=== PATIENT | male | born 1995 | race Caucasian/White ===

== ENCOUNTER 2016-05-10 00:35 | Emergency (ER) ==
--- NOTE | 2016-05-10 01:12 | PROVIDER DOCUMENTATION ---
HPI-Psychological Disorder - General Source: patient <Anitra Alejandro - Last Filed: 05/10/16 01:40> <Ok Avina - Last Filed: 05/15/16 14:01> - General Chief Complaint: Psych Stated Complaint: PSYCH Time Seen by Provider: 05/10/16 01:06 Allergies/Adverse Reactions: Patient Allergies Allergy/AdvReac Type Severity Reaction Status Date / Time No Known Allergies Allergy Verified 05/10/16 12:31 Home Medications: Home Medication List Medication Instructions Recorded Confirmed Last Taken Type Venlafaxine [Effexor] 37.5 mg PO DAILY 01/25/16 05/10/16 05/10/16 History Lurasidone HCl [Latuda] 20 mg PO DAILY 04/04/16 05/10/16 05/10/16 History Clonazepam [Klonopin] 1 mg PO TID 05/10/16 05/10/16 05/09/16 History Omeprazole [Prilosec] 20 mg PO DAILY@0700 05/10/16 05/10/16 05/10/16 History - History of Present Illness-Psych Nature of Presenting Problem: 20 y/o WM c/o paranoia, schizophrenia and not being able to sleep. Patient's mother has many different drugs in the house hold and he states he is paranoid about the director of primary coming and breaking in to arrest everyone. Denies suicidal ideation, homicidal ideation, visual hallucinations or auditory hallucinations. Admits to taking methamphetamines (Anitra Alejandro) Review of Systems - Adult - REVIEW OF SYSTEMS - ADULT Constitutional: reports: no symptoms reported. denies: chills, fever, fatique Eyes: reports: no symptoms reported. denies: blurred vision, double vision, eye pain Ears, Nose, Mouth & Throat: reports: no symptoms reported. denies: ear pain, nose pain, throat pain Cardiovascular: reports: no symptoms reported. denies: chest pain, palpitations Respiratory: reports: no symptoms reported. denies: cough, shortness of breath Gastrointestinal: reports: no symptoms reported. denies: abdominal pain, diarrhea, nausea, vomiting Genitourinary: reports: no symptoms reported. denies: incontinence Musculoskeletal: reports: no symptoms reported. denies: bone pain, back pain, muscle aches Integumentary: reports: no symptoms reported. denies: rash Neurological: reports: no symptoms reported. denies: dizziness/vertigo, headache/migraines Psychiatric: reports: no symptoms reported Endocrine: reports: no symptoms reported Hematologic/Lymphatic: reports: no symptoms reported Allergic/Immunologic: reports: no symptoms reported All Other Systems: Reviewed and Negative <Anitra Alejandro - Last Filed: 05/10/16 01:40> Past History - Adult - PAST MEDICAL HISTORY-ADULT Review of Records: reports: Old Records Reviewed, Nursing Assessment Review, Medications Reviewed, Social history reviewed & non-contributory. Major Childhood Illnesses: reports: denies history, other Cardiovascular: reports: denies history Respiratory: reports: asthma (child ) Gastrointestinal: reports: GERD Genitourinary: reports: denies history Musculoskeletal: reports: denies history Neurological: reports: denies history Psychiatric: reports: anxiety, depression, psychiatric problems Endocrine/Immune: reports: denies history Other Conditions: reports: denies history - PRIOR SURGERIES/PROCEDURES Surgical/Procedure History: reports: other (eye sx, endoscopy) - PRIOR HOSPITALIZATIONS Prior Hospitalizations: reports: psychiatric or rehab - IMMUNIZATION STATUS Childhood Immunizations: See Nurse Assessment Flu Vaccine: See Nurse Assessment - FAMILY HISTORY Family History: reviewed, not pertinent - SOCIAL HISTORY Smoking: less than 1 pack/day Provider spent 3-5 mins advising pt. on dangers of tobacco.: Discussed manners to quit use, and f/u contacts for add'l counseling. Substance Use: amphetamines Alcohol Use Frequency: never <Anitra Alejandro - Last Filed: 05/10/16 01:40> Physical Exam-Psych Focus - Physical Exam-Psych Initial Vital Signs Reviewed: Yes Appearance: appropriate appearance, appropriate insight, neat, no apparent distress, no memory impairment, denies illness Neurological: alert, normal mood/affect, calm, project builder II-XII nml as tested, oriented x 3 Behavior/Eye Contact/Speech: cooperative, good eye contact, normal speech Thoughts/Hallucinations: normal thought pattern, no apparent hallucination HENMT: normocephalic/atraumatic, moist mucous membranes Neck: non-tender, full range of motion, supple, normal inspection Respiratory: chest non-tender, lungs clear, normal breath sounds, no pleuratic chest pain, no respiratory distress, no accessory muscle use. negative: respiratory distress, decreased breath sounds, accessory muscle use, crackles, rales, rhonchi, wheezing Cardiovascular: normal peripheral pulses, regular rate, rhythm Extremity: normal range of motion, non-tender, normal gait Integumentary: normal color, normal turgor, warm/dry <Anitra Alejandro - Last Filed: 05/10/16 01:40> Progress - CHANGE OF SHIFT REPORT (ED Provider) Report Given and Care Transferred to:: Dr. Baptiste Time of Transfer: 01:40 Items Pending: Labs, Physician Consult/Arrival Tentative Impression of Patient: stable <Anitra Alejandro - Last Filed: 05/10/16 01:40> - PSYCHIATRIC Medically clear for psych eval and/or transfer to [facility] Yes (patient is medically cleared for [facility]) <Ok Avina - Last Filed: 05/15/16 14:01> - PLAN OF CARE/RESULTS Progress/Plan/Lab Results: Vital Signs Temp Pulse Resp BP Pulse Ox 05/10/16 04:18 98.1 F 103 H 16 124/79 100 05/10/16 00:38 97.8 F 87 20 139/92 100 No Known Allergies Allergy (Verified 05/10/16 01:26) Venlafaxine [Effexor] 37.5 mg PO DAILY 01/25/16 Lurasidone HCl [Latuda] 20 mg PO DAILY 04/04/16 Clonazepam [Klonopin] 1 mg PO TID 05/10/16 Omeprazole [Prilosec] 20 mg PO DAILY@0700 05/10/16 NICOTINE DEPENDENCE, CIGARETTES, UNCOMPLICATED (05/10/16) UNSP PSYCHOSIS NOT DUE TO A SUBSTANCE OR KNOWN PHYSIOL COND (05/10/16) MAJOR DEPRESSIVE DISORDER, SINGLE EPISODE, UNSPECIFIED (05/10/16) ANXIETY DISORDER, UNSPECIFIED (05/10/16) TOBACCO ABUSE COUNSELING (05/10/16) OTHER SENIOR CARE (CURRENT) DRUG THERAPY (05/10/16) Orders Category Date Time Status ALCOHOL BLOOD Stat Lab 05/10/16 00:45 Completed CBC WITH ELECTRONIC DIFF [HEME] Stat Lab 05/10/16 00:45 Completed COMPREHENSIVE METABOLIC PANEL [CHEM] Stat Lab 05/10/16 00:45 Completed FREE T4 Stat Lab 05/10/16 00:45 Completed TSH Stat Lab 05/10/16 00:45 Completed URINALYSIS W/POSS RFLX CULT [URINALYSIS] Stat Lab 05/10/16 00:45 Completed URINE DRUG SCREEN Stat Lab 05/10/16 00:45 Completed VITAMIN B12 Stat Lab 05/10/16 00:45 Completed EKG [EKG] Stat Ther 05/10/16 00:47 Draft (Ok Avina) - PSYCHIATRIC Psych patient progress: patient signed no harm contract, family will watch him, pt will f/u with outpatient mental health (Ok Avina) Departure <Anitra Alejandro - Last Filed: 05/10/16 01:40> - Departure Time of Disposition Order: 04:20 Certified Medical Emergency: Emergent <Ok Avina - Last Filed: 05/15/16 14:01> - Departure DIAGNOSIS: Generalized anxiety disorder Depression Qualifiers: Depression Type: major depressive disorder Major depression recurrence: recurrent Active/Remission status: currently active Major depression episode severity: mild Qualified Code(s): F33.0 - Major depressive disorder, recurrent, mild Schizophrenia Qualifiers: Schizophrenia type: other Qualified Code(s): F20.89 - Other schizophrenia; F20.8 - Other schizophrenia Disposition: HOME 01 Condition: Stable Additional Instructions: ED Follow Up Instructions: You have been treated by a care provider in the Emergency Department. These instructions are being provided to you so you can have an understanding of how to care for yourself upon discharge. Upon discharge from the Emergency Department, you are responsible for making arrangements for follow-up care by a physician of your choice. Take all prescribed medications as directed. Return to the Emergency Department immediately for any new or worsening symptoms. You may call the Physician Referral phone number at [phone] to obtain a list of Physicians who are taking new patients. Referrals: None,PCP [Primary Care Provider] - Instructions: Depression, Adult, Bipolar Disorder, Stimulant Use Disorder- Methamphetamines Attestation - Physician/ JERI Attestation Patient care was provided by Advanced Practice Provider:: Yes Advanced Practice Provider:: Anitra Alejandro Advanced Practice Provider documentation review:: The Mid-level provider documentation, treatment plan and medical decision making was reviewed by the physician who agrees with all treatment and medical decision making by the MLP. <Anitra Alejandro - Last Filed: 05/10/16 01:40> - Scribe Verification/Attestation Scribe:: Ok Avina Acting as Scribe for:: Bud Baptiste Scribe documention review:: This chart was documented by a scribe and accurately reflects the service the provider performed and the decisions made by the provider. <Ok Avina - Last Filed: 05/15/16 14:01> Physician Attestation - Physician Attestation I, the provider, attest to the following statement:: Bud Baptiste Physician documentation Attestation:: This documentation recorded by the scribe accurately reflects the service I personally performed and the decisions made by me. <Ok Avina - Last Filed: 05/15/16 14:01>
[2016-05-10 01:24] LABS: MANUAL DIFF NEEDED? NO
[2016-05-10 01:25] LABS: URINE CULTURE NEEDED? NO; URINE MICRO REVIEW NEEDED? NO; URINE SOURCE CLEAN CATCH
[2016-05-10 01:37] LABS: BASO% 0.4 % (0.0-0.8); EOS# 0.26 X1000 (0.0-0.7); EOS% 3.1 % (0.0-10.0); HEMATOCRIT 44.6 % (42.0-52.0); IMM GRAN# 0.02 X1000 (0.0-0.04); IMM GRAN% 0.2 % (0.0-0.5); LYMPH# 2.96 X1000 (1.2-3.4); LYMPH% 35.2 % (20.5-51.1); MCH 29.6 PG (27-31); MCHC 35.9 g/dL (33-37); MCV 82.6 FL (81-99); MONO# 0.93 X1000 (0.11-0.59); MONO% 11.1 % (1.7-9.3); MPV 9.2 FL (7.4-10.4); PLT 339 X1000 (130-400)
[2016-05-10 01:51] LABS: BILIRUBIN URINE NEGATIVE (NEGATIVE); BLOOD URINE NEGATIVE (NEGATIVE); COLOR YELLOW; GLUCOSE URINE NEGATIVE (NEGATIVE); LEUKOCYTES URINE NEGATIVE (NEGATIVE); NITRITE URINE NEGATIVE (NEGATIVE); PROTEIN URINE NEGATIVE (NEGATIVE); SP GRAVITY URINE 1.019; TURBIDITY URINE CLEAR (CLEAR); UR EPITHELIAL CELLS <10 /HPF (<10); URINE BACTERIA NEGATIVE /HPF; URINE RBC <10 /HPF (<10); URINE WBC <10 /HPF (<10); UROBILINOGEN URINE NORMAL (NORMAL)
--- NOTE | 2016-05-10 02:00 | ED EKG INTERP ---
EKG Interpretation - EKG Time of EKG reading by physician:: 01:59 EKG Read and Signed by:: Bud Baptiste EKG Interpretation (*Must complete 3 of following elements*): Normal Rate: 87 Rhythm: NSR [place]: normal QRS: normal [place] Interval: normal ST Wave: normal Attestation - Scribe Verification/Attestation Scribe:: Isha Brooks Acting as Scribe for:: Bud Baptiste Scribe documention review:: This chart was documented by a scribe and accurately reflects the service the provider performed and the decisions made by the provider. Physician Attestation - Physician Attestation I, the provider, attest to the following statement:: Bud Baptiste Physician documentation Attestation:: This documentation recorded by the scribe accurately reflects the service I personally performed and the decisions made by me.
[2016-05-10 02:04] LABS: AGAP 15; ALBUMIN 4.5 g/dL (3.5-5.0); ALKALINE PHOSPHATASE 60 U/L (32-122); BUN 16 mg/dL (8-22); CALCIUM 9.5 mg/dL (8.8-10.2); CHLORIDE 99 mmol/L (98-107); COSMO 280; GOT 27 U/L (10-34); GPT 38 U/L (10-44); POTASSIUM 3.4 mmol/L (3.5-5.1); SODIUM 140 mmol/L (136-145); TCO2 26 mmol/L (25-35); TOTAL BILIRUBIN 0.81 mg/dL (0.20-1.00); TOTAL PROTEIN 7.3 g/dL (6.3-8.3)
[2016-05-10 02:12] LABS: UR AMPHETAMINES QUAL PRESUMPTIVE POSITIVE (NONE DETECT); UR BARBITUATES QUAL NONE DETECTED (NONE DETECT); UR BENZODIAZEPIN QUAL NONE DETECTED (NONE DETECT); UR CANNABINOIDS QUAL NONE DETECTED (NONE DETECT); UR COCAINE QUAL NONE DETECTED (NONE DETECT); UR METHADONE QUAL NONE DETECTED (NONE DETECT); UR OPIATES QUAL NONE DETECTED (NONE DETECT); UR OXYCODONE QUAL NONE DETECTED (NONE DETECT); UR PCP QUAL NONE DETECTED (NONE DETECT)
[2016-05-10 02:17] LABS: FREE T4 1.49 ng/dL (0.93-1.70)
[2016-05-10 04:19] VITALS: BP 124/79
--- NOTE | 2016-05-10 06:18 | EKG Report ---
Test Performed on : 05/10/2016 01:08:48 AM Test Reason : Psych Blood Pressure : / mmHG Vent. Rate : 087 BPM Atrial Rate : 087 BPM P-R Int : 126 ms QRS Dur : 098 ms QT Int : 366 ms P-R-T Axes : 078 050 081 degrees QTc Int : 440 ms Normal sinus rhythm. Normal ECG When compared with ECG of 11-APR-2016 14:37, No significant change was found Unconfirmed Result
== END 2016-05-10 04:20 | disposition home or self-care (01) ==
LOC: ED 00:35
DX: F33.0 Major depressive disorder, recurrent, mild (principal); F20.89 Other schizophrenia; F41.1 Generalized anxiety disorder; F29 Unspecified psychosis not due to a substance or known physiological condition; F17.210 Nicotine dependence, cigarettes, uncomplicated; Z71.6 Tobacco abuse counseling; Z79.899 Other long term (current) drug therapy; F13.230 Sedative, hypnotic or anxiolytic dependence with withdrawal, uncomplicated; R11.2 Nausea with vomiting, unspecified; G25.89 Other specified extrapyramidal and movement disorders; K21.9 Gastro-esophageal reflux disease without esophagitis; F32.9 Major depressive disorder, single episode, unspecified
CPT/HCPCS: 36415; 80053; 81001; 82607; 84439; 84443; 85025; 93005; 99284; G0480; 80320; 80324; 80345; 80346; 80349; 80353; 80358; 80361; 80365; 83992

== ENCOUNTER 2016-05-10 12:01 | Emergency (ER) ==
[2016-05-10] MEDS ORDERED: ATIVAN IV ONE (12:52)
[2016-05-10] MEDS ORDERED: NS 1,000 ML IV ONE (12:52)
[2016-05-10 13:09] LABS: MANUAL DIFF NEEDED? NO
[2016-05-10 13:11] LABS: URINE CULTURE NEEDED? NO; URINE MICRO REVIEW NEEDED? NO; URINE SOURCE CLEAN CATCH
[2016-05-10 13:14] LABS: BASO% 0.2 % (0.0-0.8); EOS# 0.05 X1000 (0.0-0.7); EOS% 0.6 % (0.0-10.0); HEMATOCRIT 47.6 % (42.0-52.0); HEMOGLOBIN 17.3 g/dL (14.0-18.0); IMM GRAN# 0.02 X1000 (0.0-0.04); IMM GRAN% 0.2 % (0.0-0.5); LYMPH# 1.69 X1000 (1.2-3.4); LYMPH% 19.3 % (20.5-51.1); MCH 29.3 PG (27-31); MCHC 36.3 g/dL (33-37); MCV 80.7 FL (81-99); MONO# 0.62 X1000 (0.11-0.59); MONO% 7.1 % (1.7-9.3); MPV 9.4 FL (7.4-10.4); NEUT% 72.6 % (42.2-75.2); PLT 344 X1000 (130-400)
[2016-05-10 13:16] LABS: BILIRUBIN URINE NEGATIVE (NEGATIVE); BLOOD URINE NEGATIVE (NEGATIVE); COLOR YELLOW; GLUCOSE URINE NEGATIVE (NEGATIVE); LEUKOCYTES URINE NEGATIVE (NEGATIVE); NITRITE URINE NEGATIVE (NEGATIVE); PH URINE 7.5; PROTEIN URINE NEGATIVE (NEGATIVE); SP GRAVITY URINE 1.005; TURBIDITY URINE CLEAR (CLEAR); UR EPITHELIAL CELLS <10 /HPF (<10); URINE BACTERIA NEGATIVE /HPF; URINE RBC <10 /HPF (<10); URINE WBC <10 /HPF (<10); UROBILINOGEN URINE NORMAL (NORMAL)
[2016-05-10 13:31] LABS: UR AMPHETAMINES QUAL NONE DETECTED (NONE DETECT); UR BARBITUATES QUAL NONE DETECTED (NONE DETECT); UR BENZODIAZEPIN QUAL NONE DETECTED (NONE DETECT); UR CANNABINOIDS QUAL NONE DETECTED (NONE DETECT); UR COCAINE QUAL NONE DETECTED (NONE DETECT); UR METHADONE QUAL NONE DETECTED (NONE DETECT); UR OPIATES QUAL NONE DETECTED (NONE DETECT); UR OXYCODONE QUAL NONE DETECTED (NONE DETECT); UR PCP QUAL NONE DETECTED (NONE DETECT)
[2016-05-10 13:32] LABS: AGAP 17; ALBUMIN 4.9 g/dL (3.5-5.0); ALKALINE PHOSPHATASE 66 U/L (32-122); BUN 16 mg/dL (8-22); CALCIUM 10.4 mg/dL (8.8-10.2); CHLORIDE 97 mmol/L (98-107); COSMO 275; GOT 25 U/L (10-34); GPT 38 U/L (10-44); POTASSIUM 4.3 mmol/L (3.5-5.1); SODIUM 136 mmol/L (136-145); TCO2 22 mmol/L (25-35); TOTAL BILIRUBIN 0.99 mg/dL (0.20-1.00); TOTAL PROTEIN 7.8 g/dL (6.3-8.3)
--- NOTE | 2016-05-10 13:36 | PROVIDER DOCUMENTATION ---
[id number] Abuse/Overdose - General Chief Complaint: Withdrawals Stated Complaint: withdrawals Time Seen by Provider: 05/10/16 12:28 Source: patient Allergies/Adverse Reactions: Allergies Allergy/AdvReac Type Severity Reaction Status Date / Time No Known Allergies Allergy Verified 05/10/16 12:31 Home Medications: Home Medication List Medication Instructions Recorded Confirmed Last Taken Type Venlafaxine [Effexor] 37.5 mg PO DAILY 01/25/16 05/10/16 05/10/16 History Lurasidone HCl [Latuda] 20 mg PO DAILY 04/04/16 05/10/16 05/10/16 History Clonazepam [Klonopin] 1 mg PO TID 05/10/16 05/10/16 05/09/16 History Omeprazole [Prilosec] 20 mg PO DAILY@0700 05/10/16 05/10/16 05/10/16 History - History of Present Illness-Drug/Alcohol Nature of Presenting Problem: 20 year old WM presents with c/o nausea, vomiting and shaking since last night. pt reports he ran out of his klonopin 3 days ago and is experiencing with drawls. pt reports several weeks ago he took 15 klonopin so he would sleep for a long time so he ran out before he was able to get a refill. pt reports he has an appointment with his psychiatrist at 1400 today for refills. This episode of drinking or use began:: 3 days ago Severity: reports: mild Psychiatric Complaints: reports: denies symptoms. denies: angry, agitated, altered mental status, anxiety, confused, depressed, frustrated, hallucinating, hostile, homicidal thoughts, impaired concentration, ingestion, injury, insomnia , irritability, paranoid, , rapid pulse, restlessness, suicidal ideation , tremor, other Associated Symptoms: reports: anxiety, nausea, vomiting. denies: denies symptoms, arm pain, back/neck pain, chest pain, constipation, cough, diaphoresis , diarrhea, dizziness, EENT symptoms, fatigue, fever/chills, genitourinary problems, headaches, heartburn, joint pain, loss of appetite, malaise, muscle aches, sinus congestion/drainage, rash, seizure, shortness of breath, sensory/ motor loss, pain with inspiration, swelling/mass in abdomen, syncope, weakness, trouble walking, other Any injuries associated with this episode of intoxication?: No Similar Symptoms Previously?: No Recently seen or treated by another doctor?: No Review of Systems - Adult - REVIEW OF SYSTEMS - ADULT Constitutional: reports: no symptoms reported. denies: chills, fever, fatique Eyes: reports: no symptoms reported. denies: discharge, blurred vision, double vision, redness Ears, Nose, Mouth & Throat: reports: no symptoms reported. denies: ear discharge, ear pain, nose pain, loose teeth, throat pain, throat swelling Cardiovascular: reports: no symptoms reported. denies: chest pain, heart murmur , irregular heart rate, palpitations Respiratory: reports: no symptoms reported. denies: chronic cough, cough, shortness of breath, wheezing Gastrointestinal: reports: see HPI, nausea, vomiting. denies: abdominal pain, hematemesis, constipation, diarrhea, difficulty swallowing, frequent heartburn, poor appetite, rectal bleeding Genitourinary: reports: no symptoms reported. denies: dysuria, hematuria, urgency Musculoskeletal: reports: no symptoms reported. denies: bone pain, joint pain, joint swelling, neck pain Integumentary: reports: no symptoms reported. denies: hives, itching, rash, skin sores/ulcer Neurological: reports: no symptoms reported. denies: ataxia, dizziness/vertigo , headache/migraines, loss of balance, numbness, paresthesia, seizure, slurred speech, syncope, tremors Psychiatric: reports: see HPI, anxiety, anti-depressant use, alcohol/drug dependence, depression, emotional problems, panic attacks. denies: suicidal thoughts Endocrine: reports: no symptoms reported Hematologic/Lymphatic: reports: no symptoms reported Allergic/Immunologic: reports: no symptoms reported All Other Systems: Reviewed and Negative Past History - Adult - PAST MEDICAL HISTORY-ADULT Review of Records: reports: Old Records Reviewed, Nursing Assessment Review, Medications Reviewed, Social history reviewed & non-contributory. Major Childhood Illnesses: reports: denies history, other Cardiovascular: reports: denies history Respiratory: reports: asthma (child ) Gastrointestinal: reports: GERD Obstetrical/Gynecological: reports: denies history Genitourinary: reports: denies history Musculoskeletal: reports: denies history Neurological: reports: denies history Psychiatric: reports: anxiety, depression, psychiatric problems Endocrine/Immune: reports: denies history Other Conditions: reports: denies history - PRIOR SURGERIES/PROCEDURES Surgical/Procedure History: reports: other (eye sx, endoscopy) - PRIOR HOSPITALIZATIONS Prior Hospitalizations: reports: psychiatric or rehab - IMMUNIZATION STATUS Childhood Immunizations: See Nurse Assessment Flu Vaccine: See Nurse Assessment - FAMILY HISTORY Family History: reviewed, not pertinent - SOCIAL HISTORY Smoking: cigarettes, greater than 1 pack/day Provider spent 3-5 mins advising pt. on dangers of tobacco.: Discussed manners to quit use, and f/u contacts for add'l counseling. Substance Use: none/never Alcohol Use Frequency: never Physical Exam-General - PHYSICAL EXAM-ADULT Initial Vital Signs Reviewed: Yes - CONSTITUTIONAL General Appearance: appears well, alert, no apparent distress. negative: mild distress, moderate distress, severe distress, lethargic, slow to respond, obtunded, combative - EYES Eyes: pink conjunctivae. negative: conjuctival exudate, pale conjunctivae, photophobia, sclera injected, scleral icterus, subconjunctival hemorrhage - HEAD, EARS, NOSE, MOUTH & THROAT HENMT: normocephalic/atraumatic, moist mucous membranes, normal ENT inspection - NECK Neck: non-tender, full range of motion, supple, normal inspection. negative: C- spine tenderness, limited range of motion, tender lateral, tender midline - RESPIRATORY Respiratory: chest non-tender, lungs clear, normal breath sounds, no pleuratic chest pain, no respiratory distress, no accessory muscle use. negative: respiratory distress, decreased breath sounds, accessory muscle use, crackles, rales, rhonchi - CARDIOVASCULAR Cardiovascular: normal peripheral pulses, regular rate, rhythm, no edema, no gallop, no JVD, no murmur, tachycardia. negative: bradycardia, diastolic murmur , systolic murmur - CHEST (BREASTS) Chest/Breast: deferred - GASTROINTESTINAL (ABDOMEN) Abdominal Exam: normal bowel sounds, non tender, soft - GENITOURINARY Male Genitalia: deferred Rectal Exam: deferred - LYMPHATIC Lymphatic: no adenopathy - MUSCULOSKELETAL Back Exam: normal inspection, no CVA tenderness, no vertebral tenderness. negative: CVA tenderness, decreased range of motion, swelling, vertebral tenderness Extremity: normal range of motion, non-tender, normal gait, normal inspection, no pedal edema, no calf tenderness, normal capillary refill. negative: deformity, erythema, inflammation, slow capillary refill, swelling, tenderness Peripheral Pulses: radial (R): 3+, radial (L): 3+, dorsalis-pedis (R): 3+, dorsalis-pedis (L): 3+ - SKIN Integumentary: normal color, normal turgor, warm/dry - NEUROLOGIC Neurologic: grossly normal, no motor/sensory deficits. negative: facial droop, focal weakness, motor weakness, sensory deficit - PSYCHIATRIC Psych/Mental Status: normal mood/affect, normal thought content, normal thought process, oriented x 3 Progress - PLAN OF CARE/RESULTS Progress/Plan/Lab Results: Laboratory Tests 05/10/16 05/10/16 05/10/16 12:20 12:20 12:20 WBC 8.77 RBC 5.90 Hgb 17.3 Hct 47.6 MCV 80.7 L MCH 29.3 MCHC 36.3 RDW Std Deviation 13.3 Plt Count 344 MPV 9.4 Immature Gran % (Auto) 0.2 Neut % (Auto) 72.6 Lymph % (Auto) 19.3 L Becker % (Auto) 7.1 Eos % (Auto) 0.6 Baso % (Auto) 0.2 Immature Gran # (Auto) 0.02 Neut # (Auto) 6.37 Lymph # (Auto) 1.69 Becker # (Auto) 0.62 H Eos # (Auto) 0.05 Baso # (Auto) 0.02 Sodium 136 Potassium 4.3 D Chloride 97 L Carbon Dioxide 22 L Anion Gap 17 BUN 16 Creatinine 1.0 Estimated GFR/1.73 m2 > 60 BUN/Creatinine Ratio 16 Glucose 125 H Calculated Osmolality 275 Calcium 10.4 H Total Bilirubin 0.99 AST 25 ALT 38 Alkaline Phosphatase 66 Total Protein 7.8 Albumin 4.9 Globulin 2.9 Albumin/Globulin Ratio 1.7 Urine Source Urine Color Urine Turbidity Urine pH Ur Specific [place] Urine Protein Ur Glucose (Stick) Ur Ketones (Stick) Urine Blood Urine Nitrite Urine Bilirubin Urobilinogen Dipstick Urine Leukocytes Urine WBC (Auto) Urine RBC (Auto) U Epithel Cells (Auto) Urine Bacteria (Auto) Urine Opiates Screen Ur Oxycodone Screen Ur Methadone, Qual Ur Barbiturates Screen Ur Phencyclidine Scrn Ur Amphetamines Screen U Benzodiazepines Scrn Urine Cocaine Screen U Cannabinoids Screen Plasma/Serum Ethyl Alc 05/10/16 05/10/16 13:00 13:00 WBC RBC Hgb Hct MCV MCH MCHC RDW Std Deviation Plt Count MPV Immature Gran % (Auto) Neut % (Auto) Lymph % (Auto) Becker % (Auto) Eos % (Auto) Baso % (Auto) Immature Gran # (Auto) Neut # (Auto) Lymph # (Auto) Becker # (Auto) Eos # (Auto) Baso # (Auto) Sodium Potassium Chloride Carbon Dioxide Anion Gap BUN Creatinine Estimated GFR/1.73 m2 BUN/Creatinine Ratio Glucose Calculated Osmolality Calcium Total Bilirubin AST ALT Alkaline Phosphatase Total Protein Albumin Globulin Albumin/Globulin Ratio Urine Source CLEAN CATCH Urine Color YELLOW Urine Turbidity CLEAR Urine pH 7.5 Ur Specific [place] 1.005 Urine Protein NEGATIVE Ur Glucose (Stick) NEGATIVE Ur Ketones (Stick) NEGATIVE Urine Blood NEGATIVE Urine Nitrite NEGATIVE Urine Bilirubin NEGATIVE Urobilinogen Dipstick NORMAL Urine Leukocytes NEGATIVE Urine WBC (Auto) <10 Urine RBC (Auto) <10 U Epithel Cells (Auto) <10 Urine Bacteria (Auto) NEGATIVE Urine Opiates Screen NONE DETECTED Ur Oxycodone Screen NONE DETECTED Ur Methadone, Qual NONE DETECTED Ur Barbiturates Screen NONE DETECTED Ur Phencyclidine Scrn NONE DETECTED Ur Amphetamines Screen NONE DETECTED U Benzodiazepines Scrn NONE DETECTED Urine Cocaine Screen NONE DETECTED U Cannabinoids Screen NONE DETECTED Plasma/Serum Ethyl Alc Orders Category Date Time Status ALCOHOL BLOOD Stat Lab 05/10/16 12:20 Completed CBC WITH ELECTRONIC DIFF [HEME] Stat Lab 05/10/16 12:20 Completed COMPREHENSIVE METABOLIC PANEL [CHEM] Stat Lab 05/10/16 12:20 Completed URINALYSIS W/POSS RFLX CULT [URINALYSIS] Stat Lab 05/10/16 13:00 Completed URINE DRUG SCREEN Stat Lab 05/10/16 13:00 Completed 0.9% Sodium Chloride Inj [Ns] 1,000 ml Med 05/10/16 12:52 Discontinued IV 999 mls/hr Lorazepam [Ativan] Med 05/10/16 12:52 Discontinued 1 mg IV NOW ONE Vital Signs - 24 hr 05/10/16 05/10/16 12:25 13:54 Temperature 98 F 98 F Pulse Rate 122 H 102 H Respiratory 20 16 Rate Blood Pressure 117/72 132/78 O2 Sat by Pulse 100 100 Oximetry Departure - Departure Time of Disposition Order: 13:30 DIAGNOSIS: Generalized anxiety disorder Benzodiazepine withdrawal Qualifiers: Complication of substance-induced condition: uncomplicated Qualified Code(s): F13.230 - Sedative, hypnotic or anxiolytic dependence with withdrawal, uncomplicated Disposition: HOME 01 Certified Medical Emergency: Emergent Condition: Stable Additional Instructions: Please attend your appointment today at 2pm with mental health to have them refill your Klonipin. ED Follow Up Instructions: You have been treated by a care provider in the Emergency Department. These instructions are being provided to you so you can have an understanding of how to care for yourself upon discharge. Upon discharge from the Emergency Department, you are responsible for making arrangements for follow-up care by a physician of your choice. Take all prescribed medications as directed. Return to the Emergency Department immediately for any new or worsening symptoms. You may call the Physician Referral phone number at [phone] to obtain a list of Physicians who are taking new patients. Referrals: None,PCP [Primary Care Provider] - Forms: Return to School/Parent Work Instructions: Generalized Anxiety Disorder, Benzodiazepine Withdrawal Attestation - Physician/ JERI Attestation Patient care was provided by Advanced Practice Provider:: Yes Advanced Practice Provider:: Lito Calhoun Advanced Practice Provider documentation review:: The Mid-level provider documentation, treatment plan and medical decision making was reviewed by the physician who agrees with all treatment and medical decision making by the MLP.
[2016-05-10 13:54] VITALS: BP 132/78
== END 2016-05-10 14:01 | disposition home or self-care (01) ==
LOC: EDBD → ED 12:01
DX: F41.1 Generalized anxiety disorder (principal); F13.230 Sedative, hypnotic or anxiolytic dependence with withdrawal, uncomplicated; R11.2 Nausea with vomiting, unspecified; G25.89 Other specified extrapyramidal and movement disorders; K21.9 Gastro-esophageal reflux disease without esophagitis; F32.9 Major depressive disorder, single episode, unspecified; F17.210 Nicotine dependence, cigarettes, uncomplicated; Z79.899 Other long term (current) drug therapy; Z71.6 Tobacco abuse counseling
CPT/HCPCS: 80053; 81001; 85025; G0480; J2060; J7030; 80320; 80324; 80345; 80346; 80349; 80353; 80358; 80361; 80365; 83992

== ENCOUNTER 2016-05-23 11:56 | Emergency (ER) ==
[2016-05-23 13:37] LABS: MANUAL DIFF NEEDED? NO
[2016-05-23 13:41] LABS: BASO% 0.4 % (0.0-0.8); EOS# 0.13 X1000 (0.0-0.7); EOS% 1.7 % (0.0-10.0); HEMATOCRIT 50.8 % (42.0-52.0); HEMOGLOBIN 17.7 g/dL (14.0-18.0); LYMPH# 1.62 X1000 (1.2-3.4); LYMPH% 21.4 % (20.5-51.1); MCH 29.5 PG (27-31); MCHC 34.8 g/dL (33-37); MCV 84.8 FL (81-99); MONO# 0.59 X1000 (0.11-0.59); MONO% 7.8 % (1.7-9.3); MPV 8.8 FL (7.4-10.4); NEUT% 68.7 % (42.2-75.2); PLT 229 X1000 (130-400); RBC 5.99 XMIL (4.7-6.1)
[2016-05-23 14:00] LABS: AGAP 12; ALKALINE PHOSPHATASE 64 U/L (32-122); BUN 11 mg/dL (8-22); CALCIUM 10.3 mg/dL (8.8-10.2); CHLORIDE 102 mmol/L (98-107); COSMO 282; GOT 28 U/L (10-34); GPT 41 U/L (10-44); POTASSIUM 3.9 mmol/L (3.5-5.1); SODIUM 142 mmol/L (136-145); TCO2 28 mmol/L (25-35); TOTAL BILIRUBIN 0.61 mg/dL (0.20-1.00); TOTAL PROTEIN 8.1 g/dL (6.3-8.3)
[2016-05-23 14:17] LABS: URINE CULTURE NEEDED? NO; URINE MICRO REVIEW NEEDED? NO; URINE SOURCE CLEAN CATCH
[2016-05-23 14:17] LABS: FREE T4 1.17 ng/dL (0.93-1.70)
--- NOTE | 2016-05-23 14:34 | PROVIDER DOCUMENTATION ---
HPI-Psychological Disorder - General Chief Complaint: Psych Stated Complaint: ANIXITY Time Seen by Provider: 05/23/16 14:19 Source: patient Allergies/Adverse Reactions: Patient Allergies Allergy/AdvReac Type Severity Reaction Status Date / Time No Known Allergies Allergy Verified 05/10/16 12:31 Home Medications: Home Medication List Medication Instructions Recorded Confirmed Last Taken Type Venlafaxine [Effexor] 37.5 mg PO DAILY 01/25/16 05/10/16 05/10/16 History Lurasidone HCl [Latuda] 20 mg PO DAILY 04/04/16 05/10/16 05/10/16 History Clonazepam [Klonopin] 1 mg PO TID 05/10/16 05/10/16 05/09/16 History Omeprazole [Prilosec] 20 mg PO DAILY@0700 05/10/16 05/10/16 05/10/16 History - History of Present Illness-Psych Nature of Presenting Problem: patient is a 20 y/o M that presents to the ER with psychiatric issues. patient was placed on Klonopin and took last dose yesterday. patient today started to get anxious and have SI thoughts( wants to shoot himself with gun). Long standing history with psychiatric issues ( bipolar and schizophrenia). Onset/Duration: reports: gradual, this morning Timing: reports: still present, constant Severity: reports: moderate Situational problems related to:: reports: N/A Psychiatric Complaints: reports: anxiety, depressed, suicidal ideation. denies : hallucinating, homicidal thoughts, impaired concentration, paranoid Previous psych related hospitalizations?: Yes Patient arrived by:: private car Similar Symptoms Previously?: Yes Recently seen or treated by another doctor?: No - Suicidal Ideation Suicide Risk Assessment: male sex, depressed, organized plan, chronic illness, schizophrenia, bi-polar Clinician's estimation of suicide risk?: high risk Suicidal Attempt Method: reports: Shooting Review of Systems - Adult - REVIEW OF SYSTEMS - ADULT Constitutional: denies: chills, fever, night sweats Eyes: denies: decreased vision, blurred vision, eye pain Ears, Nose, Mouth & Throat: denies: ear pain, sinus problem, throat pain, throat swelling Cardiovascular: denies: chest pain, palpitations, syncope Respiratory: denies: cough, shortness of breath, wheezing Gastrointestinal: reports: no symptoms reported Genitourinary: reports: no symptoms reported Musculoskeletal: reports: no symptoms reported Integumentary: reports: no symptoms reported Neurological: denies: dizziness/vertigo, headache/migraines, seizure, syncope Psychiatric: reports: anxiety, depression, suicidal thoughts. denies: emotional problems Endocrine: reports: no symptoms reported Hematologic/Lymphatic: reports: no symptoms reported Allergic/Immunologic: reports: no symptoms reported All Other Systems: Reviewed and Negative Past History - Adult - PAST MEDICAL HISTORY-ADULT Review of Records: reports: Old Records Reviewed, Nursing Assessment Review, Medications Reviewed Major Childhood Illnesses: reports: other Respiratory: reports: asthma (child ) Gastrointestinal: reports: GERD Psychiatric: reports: anxiety, depression, psychiatric problems - PRIOR SURGERIES/PROCEDURES Surgical/Procedure History: reports: other (eye sx, endoscopy) - PRIOR HOSPITALIZATIONS Prior Hospitalizations: reports: psychiatric or rehab - IMMUNIZATION STATUS Childhood Immunizations: See Nurse Assessment Flu Vaccine: See Nurse Assessment - FAMILY HISTORY Family History: reviewed, not pertinent - SOCIAL HISTORY Smoking: cigarettes, less than 1 pack/day Substance Use: amphetamines Living Situation: family Physical Exam-Psych Focus - Physical Exam-Psych Initial Vital Signs Reviewed: Yes Appearance: no apparent distress, no memory impairment, alert, anxious Neurological: alert, 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, oriented x 3, anxious Behavior/Eye Contact/Speech: cooperative, good eye contact, normal speech Thoughts/Hallucinations: normal thought pattern, no apparent hallucination HENMT: normocephalic/atraumatic, moist mucous membranes, normal ENT inspection Neck: full range of motion, normal inspection Respiratory: lungs clear, normal breath sounds, no respiratory distress, no accessory muscle use Cardiovascular: no gallop, no murmur, tachycardia Abdominal Exam: normal bowel sounds, non tender, soft Extremity: normal range of motion, normal inspection Integumentary: normal color, warm/dry Progress - PLAN OF CARE/RESULTS Progress/Plan/Lab Results: plan of care-psych work up Vital Signs Temp Pulse Resp BP Pulse Ox 05/23/16 12:17 98.4 F 118 H 16 142/90 100 No Known Allergies Allergy (Verified 05/10/16 12:31) Venlafaxine [Effexor] 37.5 mg PO DAILY 01/25/16 Lurasidone HCl [Latuda] 20 mg PO DAILY 04/04/16 Clonazepam [Klonopin] 1 mg PO TID 05/10/16 Omeprazole [Prilosec] 20 mg PO DAILY@0700 05/10/16 Dietary Diet Regular Diet Start SunMay 24 1415 I&O 05/22/16 05/23/16 05/24/16 06:59 06:59 06:59 Output Total 90 Balance -90 Laboratory 05/23/16 05/23/16 05/23/16 14:01 14:01 13:25 WBC RBC Hgb Hct MCV MCH MCHC RDW Std Deviation Plt Count MPV Neut % (Auto) Lymph % (Auto) [place] % (Auto) Eos % (Auto) Baso % (Auto) Neut # (Auto) Lymph # (Auto) [place] # (Auto) Eos # (Auto) Baso # (Auto) Sodium Potassium Chloride Carbon Dioxide Anion Gap BUN Creatinine Estimated GFR/1.73 m2 BUN/Creatinine Ratio Glucose Calculated Osmolality Calcium Total Bilirubin AST ALT Alkaline Phosphatase Total Protein Albumin Globulin Albumin/Globulin Ratio Vitamin B12 658 TSH 1.55 Free T4 1.17 Urine Source CLEAN CATCH Urine Color STRAW Urine Turbidity CLEAR Urine pH 7.0 Ur Specific [place] 1.004 Urine Protein NEGATIVE Ur Glucose (Stick) NEGATIVE Ur Ketones (Stick) NEGATIVE Urine Blood NEGATIVE Urine Nitrite NEGATIVE Urine Bilirubin NEGATIVE Urobilinogen Dipstick NORMAL Urine Leukocytes NEGATIVE Urine WBC (Auto) <10 Urine RBC (Auto) <10 U Epithel Cells (Auto) <10 Urine Bacteria (Auto) NEGATIVE Urine Opiates Screen NONE DETECTED Ur Oxycodone Screen NONE DETECTED Ur Methadone, Qual NONE DETECTED Ur Barbiturates Screen NONE DETECTED Ur Phencyclidine Scrn NONE DETECTED Ur Amphetamines Screen NONE DETECTED U Benzodiazepines Scrn NONE DETECTED Urine Cocaine Screen NONE DETECTED U Cannabinoids Screen NONE DETECTED Plasma/Serum Ethyl Alc 05/23/16 05/23/16 05/23/16 13:25 13:25 13:25 WBC 7.58 RBC 5.99 Hgb 17.7 Hct 50.8 MCV 84.8 MCH 29.5 MCHC 34.8 RDW Std Deviation 13.9 Plt Count 229 MPV 8.8 Neut % (Auto) 68.7 Lymph % (Auto) 21.4 [place] % (Auto) 7.8 Eos % (Auto) 1.7 Baso % (Auto) 0.4 Neut # (Auto) 5.21 Lymph # (Auto) 1.62 [place] # (Auto) 0.59 Eos # (Auto) 0.13 Baso # (Auto) 0.03 Sodium 142 Potassium 3.9 Chloride 102 Carbon Dioxide 28 Anion Gap 12 BUN 11 Creatinine 0.9 Estimated GFR/1.73 m2 > 60 BUN/Creatinine Ratio 12 Glucose 94 Calculated Osmolality 282 Calcium 10.3 H Total Bilirubin 0.61 AST 28 ALT 41 Alkaline Phosphatase 64 Total Protein 8.1 Albumin 5.0 Globulin 3.1 Albumin/Globulin Ratio 1.6 Vitamin B12 TSH Free T4 Urine Source Urine Color Urine Turbidity Urine pH Ur Specific [place] Urine Protein Ur Glucose (Stick) Ur Ketones (Stick) Urine Blood Urine Nitrite Urine Bilirubin Urobilinogen Dipstick Urine Leukocytes Urine WBC (Auto) Urine RBC (Auto) U Epithel Cells (Auto) Urine Bacteria (Auto) Urine Opiates Screen Ur Oxycodone Screen Ur Methadone, Qual Ur Barbiturates Screen Ur Phencyclidine Scrn Ur Amphetamines Screen U Benzodiazepines Scrn Urine Cocaine Screen U Cannabinoids Screen Plasma/Serum Ethyl Alc Orders Category Date Time Status Regular Diet Diet 05/23/16 14:16 Active ALCOHOL BLOOD Stat Lab 05/23/16 13:25 Completed CBC WITH ELECTRONIC DIFF [HEME] Stat Lab 05/23/16 13:25 Completed COMPREHENSIVE METABOLIC PANEL [CHEM] Stat Lab 05/23/16 13:25 Completed FREE T4 Stat Lab 05/23/16 13:25 Completed TSH Stat Lab 05/23/16 13:25 Completed URINALYSIS W/POSS RFLX CULT [URINALYSIS] Stat Lab 05/23/16 14:01 Completed URINE DRUG SCREEN Stat Lab 05/23/16 14:01 Completed VITAMIN B12 Stat Lab 05/23/16 13:25 Completed Nicotine Patch [Nicoderm Patch] Med 05/23/16 16:14 Discontinued 14 mg .ROUTE .STK-MED ONE Ziprasidone [Geodon] Med 05/23/16 15:06 Discontinued 20 mg PO NOW ONE - PSYCHIATRIC Medically clear for psych eval and/or transfer to [facility].: Yes (patient is medically cleared for [facility] consult) Psych patient progress: patient accepted to [facility] , - CHANGE OF SHIFT REPORT (ED Provider) Report Given and Care Transferred to:: Lloyd JENSEN Time of Transfer: 16:00 Items Pending: Other (psych consult) Tentative Impression of Patient: depression, si, anxiety Departure - Departure Time of Disposition Order: 16:36 DIAGNOSIS: Anxiety, Suicidal ideations Depression Qualifiers: Depression Type: other depression Qualified Code(s): F32.89 - Other specified depressive episodes Schizophrenia Qualifiers: Schizophrenia type: other Qualified Code(s): F20.89 - Other schizophrenia; F20.8 - Other schizophrenia Disposition: [facility]IATRIC HOSPITAL/[facility] [address] Certified Medical Emergency: Emergent Condition: Stable Attestation - Scribe Verification/Attestation Scribe:: Ok Avina Acting as Scribe for:: Kristina Pierson Scribe documention review:: This chart was documented by a scribe and accurately reflects the service the provider performed and the decisions made by the provider. Physician Attestation - Physician Attestation I, the provider, attest to the following statement:: Kristina Pierson Physician documentation Attestation:: This documentation recorded by the scribe accurately reflects the service I personally performed and the decisions made by me.
[2016-05-23 14:38] LABS: UR AMPHETAMINES QUAL NONE DETECTED (NONE DETECT); UR BARBITUATES QUAL NONE DETECTED (NONE DETECT); UR BENZODIAZEPIN QUAL NONE DETECTED (NONE DETECT); UR CANNABINOIDS QUAL NONE DETECTED (NONE DETECT); UR COCAINE QUAL NONE DETECTED (NONE DETECT); UR METHADONE QUAL NONE DETECTED (NONE DETECT); UR OPIATES QUAL NONE DETECTED (NONE DETECT); UR OXYCODONE QUAL NONE DETECTED (NONE DETECT); UR PCP QUAL NONE DETECTED (NONE DETECT)
[2016-05-23 14:42] LABS: BILIRUBIN URINE NEGATIVE (NEGATIVE); BLOOD URINE NEGATIVE (NEGATIVE); COLOR STRAW; GLUCOSE URINE NEGATIVE (NEGATIVE); LEUKOCYTES URINE NEGATIVE (NEGATIVE); NITRITE URINE NEGATIVE (NEGATIVE); PROTEIN URINE NEGATIVE (NEGATIVE); SP GRAVITY URINE 1.004; TURBIDITY URINE CLEAR (CLEAR); UROBILINOGEN URINE NORMAL (NORMAL)
[2016-05-23 14:44] LABS: UR EPITHELIAL CELLS <10 /HPF (<10); URINE BACTERIA NEGATIVE /HPF; URINE RBC <10 /HPF (<10); URINE WBC <10 /HPF (<10)
[2016-05-23] MEDS ORDERED: GEODON PO ONE (15:06)
[2016-05-23] MEDS ORDERED: NICODERM PATCH ONE (16:14)
[2016-05-23 17:22] VITALS: BP 138/87
== END 2016-05-23 17:20 ==
LOC: ED 11:56
DX: F41.9 Anxiety disorder, unspecified (principal); R45.851 Suicidal ideations; F32.9 Major depressive disorder, single episode, unspecified; F20.89 Other schizophrenia; F31.9 Bipolar disorder, unspecified; F17.210 Nicotine dependence, cigarettes, uncomplicated; Z79.899 Other long term (current) drug therapy
CPT/HCPCS: 80053; 81001; 82607; 84439; 84443; 85025; G0480; 80320; 80324; 80345; 80346; 80349; 80353; 80358; 80361; 80365; 83992

== ENCOUNTER 2016-05-30 16:47 | Emergency (ER) ==
[2016-05-30] MEDS ORDERED: STERILE WATER INJ. INJ ONE (17:00)
[2016-05-30] MEDS ORDERED: BENADRYL IM ONE (17:00)
[2016-05-30] MEDS ORDERED: GEODON IM ONE (17:00)
[2016-05-30] MEDS ORDERED: GEODON ONE (17:13)
[2016-05-30 17:18] LABS: MANUAL DIFF NEEDED? NO
[2016-05-30 17:25] LABS: BASO% 0.3 % (0.0-0.8); EOS# 0.12 X1000 (0.0-0.7); EOS% 0.8 % (0.0-10.0); HEMATOCRIT 44.1 % (42.0-52.0); IMM GRAN# 0.04 X1000 (0.0-0.04); IMM GRAN% 0.3 % (0.0-0.5); LYMPH# 3.05 X1000 (1.2-3.4); LYMPH% 20.8 % (20.5-51.1); MCH 29.7 PG (27-31); MCHC 36.3 g/dL (33-37); MONO# 1.44 X1000 (0.11-0.59); MONO% 9.8 % (1.7-9.3); MPV 9.3 FL (7.4-10.4); PLT 327 X1000 (130-400); RBC 5.38 XMIL (4.7-6.1)
[2016-05-30] MEDS ORDERED: ATIVAN IV ONE (17:25)
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
[2016-05-30 17:41] LABS: AGAP 23; ALBUMIN 4.7 g/dL (3.5-5.0); ALKALINE PHOSPHATASE 56 U/L (32-122); BUN 10 mg/dL (8-22); CALCIUM 9.6 mg/dL (8.8-10.2); CHLORIDE 96 mmol/L (98-107); COSMO 271; GOT 27 U/L (10-34); GPT 18 U/L (10-44); POTASSIUM 3.8 mmol/L (3.5-5.1); SODIUM 136 mmol/L (136-145); TCO2 17 mmol/L (25-35); TOTAL BILIRUBIN 0.93 mg/dL (0.20-1.00); TOTAL PROTEIN 7.3 g/dL (6.3-8.3)
[2016-05-30 17:59] LABS: ACETAMINOPHEN < 1.2 ug/mL (10-30)
[2016-05-30 18:03] LABS: FREE T4 1.37 ng/dL (0.93-1.70)
[2016-05-30 21:00] LABS: UR AMPHETAMINES QUAL PRESUMPTIVE POSITIVE (NONE DETECT); UR BARBITUATES QUAL NONE DETECTED (NONE DETECT); UR BENZODIAZEPIN QUAL NONE DETECTED (NONE DETECT); UR CANNABINOIDS QUAL NONE DETECTED (NONE DETECT); UR COCAINE QUAL NONE DETECTED (NONE DETECT); UR METHADONE QUAL NONE DETECTED (NONE DETECT); UR OPIATES QUAL NONE DETECTED (NONE DETECT); UR OXYCODONE QUAL NONE DETECTED (NONE DETECT); UR PCP QUAL NONE DETECTED (NONE DETECT)
[2016-05-30 21:48] VITALS: BP 131/90
--- NOTE | 2016-05-31 05:44 | EKG Report ---
Test Performed on : 05/30/2016 5:32:13 PM Test Reason : Suspected Overdose Blood Pressure : / mmHG Vent. Rate : 132 BPM Atrial Rate : 132 BPM P-R Int : 132 ms QRS Dur : 078 ms QT Int : 294 ms P-R-T Axes : 077 042 082 degrees QTc Int : 435 ms Sinus tachycardia. Nonspecific T wave abnormality Abnormal ECG When compared with ECG of 10-MAY-2016 01:08, Vent. rate has increased BY 45 BPM Nonspecific T wave abnormality, worse in Lateral leads Unconfirmed Result
--- NOTE | 2016-05-31 08:15 | Diag Imaging Result Document ---
PROCEDURE NAME: CHEST-PORTABLE - 05/30/2016 PORTABLE CHEST X-RAY: COMPARISON: 02/14/16 FINDINGS: The lungs are normally expanded and clear. Heart size and mediastinal contours are normal. No pneumothorax or pleural effusion. IMPRESSION: Negative exam.
--- NOTE | 2016-05-31 08:16 | Diag Imaging Result Document ---
PROCEDURE NAME: HEAD/C-SPINE W/O CONTRAST - 05/30/2016 CT HEAD AND C-SPINE WITHOUT CONTRAST: COMPARISON: None available. FINDINGS: HEAD: There is no discrete intracranial mass, mass effect, or intracranial hemorrhage. There is no evidence of hydrocephalus. There is a small scalp hematoma on the right. The calvaria is intact. There is mild ethmoid, sphenoid, and right maxillary sinus mucosal disease. C-SPINE: There is no discrete fracture, subluxation, or intrinsic osseous lesion. The central canal is grossly patent. Surrounding soft tissues are unremarkable. IMPRESSION: 1. No evidence of acute intracranial pathology. 2. Soft tissue hematoma involving the scalp on the right. 3. No evidence of fracture or other definite acute C-spine injury.
== END 2016-05-30 22:20 | disposition home or self-care (01) ==
LOC: EDBD → EDUNIT# → ED 16:47
DX: F15.10 Other stimulant abuse, uncomplicated (principal); R41.82 Altered mental status, unspecified; R56.9 Unspecified convulsions; H61.23 Impacted cerumen, bilateral; R94.31 Abnormal electrocardiogram [ECG] [EKG]; K21.9 Gastro-esophageal reflux disease without esophagitis; F41.9 Anxiety disorder, unspecified; F32.9 Major depressive disorder, single episode, unspecified; Z79.899 Other long term (current) drug therapy
CPT/HCPCS: 70450; 71010; 72125; 80053; 82607; 82948; 84439; 84443; 85025; 93005; G0480; J1200; J2060; J3486; 80320; 80324; 80329; 80345; 80346; 80349; 80353; 80358; 80361; 80365; 83992